=== PATIENT | female | born 2000 | race Caucasian/White ===

== ENCOUNTER 2019-10-03 18:26 | Emergency (ER) | payer BC ==
[~2019-10-03] VITALS: Ht 175.3 cm; Wt 65.0 kg
[2019-10-03] MEDS ORDERED: DIPHENHYDRAMINE 50 MG/ML, 1ML ONE (18:52)
[2019-10-03] MEDS ORDERED: FAMOTIDINE 20 MG/2 ML ONE (18:54)
[2019-10-03] MEDS ORDERED: DIPHENHYDRAMINE 50 MG/ML, 1ML IVPush ONE (19:00)
[2019-10-03] MEDS ORDERED: FAMOTIDINE 20 MG/2 ML IVPush ONE (19:00)
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
[2019-10-03 20:38] VITALS: BP 116/71
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
== END 2019-10-03 21:04 | disposition home or self-care (01) ==
LOC: ED 20:45
DX: T78.04XA Anaphylactic reaction due to fruits and vegetables, initial encounter (principal); Y92.89 Other specified places as the place of occurrence of the external cause
CPT/HCPCS: 96374; 96375; 99285; J1200; J3490; J7512

== ENCOUNTER 2019-10-21 13:22 | Emergency (ER) | payer BC ==
[~2019-10-21] VITALS: Ht 175.3 cm; Wt 63.9 kg
[2019-10-21 13:35] VITALS: BP 121/85
[2019-10-21] MEDS ORDERED: AZITHROMYCIN 500 MG TABLET PO ONE (14:00)
[2019-10-21] MEDS ORDERED: CEFTRIAXONE 250 MG IM ONE (14:00)
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
--- NOTE | 2019-10-21 14:08 | NUR ---
BREAK RN. CATRACHO AT BEDSIDE FOR ASSESSMENT.
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
[2019-10-21] MEDS ORDERED: LIDOCAINE-MPF 2% ,5ML ONE (14:34)
[2019-10-21] MEDS ORDERED: CEFTRIAXONE 250 MG ONE (14:34)
[2019-10-21] MEDS ORDERED: AZITHROMYCIN 500 MG TABLET ONE (14:34)
[2019-10-21 14:44] LABS: MICROSCOPIC AUTO
[2019-10-21 14:51] LABS: HCG UR SG 1.032 (1.003-1.030)
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
== END 2019-10-21 15:17 | disposition home or self-care (01) ==
LOC: ED 15:12
DX: T74.21XA Adult sexual abuse, confirmed, initial encounter (principal); N30.00 Acute cystitis without hematuria; A64 Unspecified sexually transmitted disease; F10.129 Alcohol abuse with intoxication, unspecified; Y04.8XXA Assault by other bodily force, initial encounter; Y93.89 Activity, other specified; Y92.098 Other place in other non-institutional residence as the place of occurrence of the external cause; Y99.8 Other external cause status; Y07.9 Unspecified perpetrator of maltreatment and neglect; Y90.9 Presence of alcohol in blood, level not specified
CPT/HCPCS: 81001; 81025; 87086; 96372; 99283; J0696